=== PATIENT | male | born 1990 | race Two or more races ===

== ENCOUNTER 2018-03-28 17:54 | Emergency (ER) | payer SELFPAY ==
--- NOTE | 2018-03-28 18:44 | ED PDOC ---
HPI: Abdomen <BishopkayleighCarlos J - Last Filed: 03/28/18 18:42> Chief Complaint (Provider): crampy abdominal pain History Per: Patient History/Exam Limitations: no limitations <Radha Pedroza - Last Filed: 03/30/18 10:54> Time Seen by Provider: 03/28/18 18:36 Chief Complaint (Nursing): Abdominal Pain Supervising Attending Note - Supervising Attending Note The Documented history was done by the: Attending Physician The documented physical exam was done by the: Attending Physician The documented procedures were done by the: Attending Physician - Attestation: I have personally seen and examined this patient.: Yes I have fully participated in the care of the patient.: Yes I have reviewed all pertinent clinical information: Yes - Notes: Notes:: Pt was intially evaluated by the PA then was fully seen and evaluated by myself, the MD. 27 yo M with no diagnosed previous medical history presents to the emergency department if complaint of severe, stabbing, crampy abdominal pain. Pt states for the last few months he has frequent nausea and vomiting that typically self resolves. Today, he had severe abdominal pain and after a forced BM, he had a large hard stool followed by explosive diarrhea. Pt states he has continued to feel weak with mild abdominal pain. Pt does not associate abdominal symptoms with any type of food or behavior. Pt has never had a medical workup for this pain. PMD: can't remember name but in another city Physical Exam: Well appearing by tired. NO acute distress NCAT, EOMI, ALLI, MMM RRR, S1/S2 , no murmurs LCTA BL, no wheeze, no crackles. Abdomen soft, non-tender, no palpable mass FROM of all extremities Decreased skin turgor. No rash AAOx3, calm, cooperative. Gait intact A/P: Pt with chronic symptoms consistent with gastroenteritis vs IBS Labs unremarkable. Pain improved with GI coctail and IV fluids. Pt given referral for talk show host and advised to keep a log of symptoms and do get colonoscopy/endoscopy. Pt encouraged to increase PO hydration and rest while symptoms last. <Radha Pedroza - Last Filed: 03/30/18 10:54> Past Medical History Vital Signs: Last Vital Signs Temp 98.2 F 03/28/18 18:27 Pulse 75 03/28/18 18:27 Resp 16 03/28/18 18:27 BP 134/88 03/28/18 18:27 Pulse Ox 98 03/28/18 18:27 <Carlos Bain - Last Filed: 03/28/18 18:42> Vital Signs: Last Vital Signs Temp 98.2 F 03/28/18 18:27 Pulse 75 03/28/18 18:27 Resp 16 03/28/18 18:27 BP 134/88 03/28/18 18:27 Pulse Ox 98 03/28/18 18:44 - Family History Family History: States: No Known Family Hx <Radha Pedroza - Last Filed: 03/30/18 10:54> - Home Medications Home Medications: Ambulatory Orders Medication Instructions Recorded RX: Ranitidine HCl 150 mg PO DAILY #30 tablet 03/28/18 - Allergies Allergies/Adverse Reactions: Allergies Allergy/AdvReac Type Severity Reaction Status Date / Time No Known Allergies Allergy Verified 03/28/18 18:27 - ECG O2 Sat by Pulse Oximetry: 98 <Carlos Bain - Last Filed: 03/28/18 18:42> - Laboratory Results Result Diagrams: 03/28/18 19:55 03/28/18 19:55 <Radha Pedroza - Last Filed: 03/30/18 10:54> Medical Decision Making Medical Decision Making: Pt complains of abdominal pain for two years with vomiting and diarrhea today. During history indicated that I "cut him off" when discussing his "dizziness from time to time" and that he would much prefer to see a physician. I informed him that no diagnostic tests or evaluation would be performed until he was seen and he acknowledged <Carlos Bain - Last Filed: 03/28/18 18:42> Disposition <Carlos Bain - Last Filed: 03/28/18 18:42> - Disposition Disposition: Routine/Home Disposition Time: 20:00 <Radha Pedroza - Last Filed: 03/30/18 10:54> - Clinical Impression Clinical Impression: Abdominal discomfort - Disposition Referrals: Stephen Goncalves MD, PhD [Staff Provider] - Condition: IMPROVED Additional Instructions: Follow up with talk show host. Take medication daily for nausea and abdominal discomfort. Return to the emergency department if symptoms worsen. Prescriptions: RX: Ranitidine HCl 150 mg PO DAILY #30 tablet Instructions: Viral Gastroenteritis, Nausea and Vomiting, Adult (DC) Forms: [employer] (Slovenian) Print Language: AMERICAN
[2018-03-28] MEDS ORDERED: Sodium Chloride 0.9% 1,000 ML IV STA (19:31)
[2018-03-28 20:01] LABS: BASO % 0.4 % (0.0-2.0); EOS # 0.1 K/uL (0.0-0.7); EOS % 1.2 % (0.0-4.0); HEMOGLOBIN 13.8 g/dL (12.0-18.0); MEAN CELL VOLUME 86.4 fl (80.0-94.0); MEAN CORPUSCULAR HEMOGLOBIN 28.3 pg (27.0-31.0); MEAN CORPUSCULAR HGB CONC 32.7 g/dL (33.0-37.0); MEAN PLATELET VOLUME 8.1 fl (7.2-11.7); MONO # 0.5 K/uL (0.0-0.8); NEUT # 6.9 K/uL (1.8-7.0); NEUT % 80.4 % (50.0-75.0); NRBC % 0.6 % (0.0-0.0); RBC 4.88 Mil/uL (4.40-5.90); RED CELL DISTRIBUTION WIDTH 13.8 % (11.5-14.5); WHITE BLOOD COUNT 8.6 K/uL (4.8-10.8)
[2018-03-28 20:07] LABS: ALB/GLOB RATIO 1.3 (1.0-2.1); ALBUMIN 4.7 g/dL (3.5-5.0); ALT/SGPT 60 U/L (21-72); AST/SGOT 30 U/L (17-59); BLOOD UREA NITROGEN 11 mg/dl (9-20); CALCIUM 9.8 mg/dL (8.4-10.2); GFR NON-AFRICAN AMERICAN > 60
--- NOTE | 2018-03-28 20:19 | ED PDOC ---
- Laboratory Results Result Diagrams: 03/28/18 19:55 03/28/18 19:55 Lab Results: Total Bilirubin 0.7 mg/dl (0.2-1.3) 03/28/18 19:55 AST 30 U/L (17-59) 03/28/18 19:55 ALT 60 U/L (21-72) 03/28/18 19:55 Alkaline Phosphatase 58 U/L (38-126) 03/28/18 19:55 Total Protein 8.2 G/DL (6.3-8.2) 03/28/18 19:55 Albumin 4.7 g/dL (3.5-5.0) 03/28/18 19:55 Globulin 3.5 gm/dL (2.2-3.9) 03/28/18 19:55 Albumin/Globulin Ratio 1.3 (1.0-2.1) 03/28/18 19:55 - ECG O2 Sat by Pulse Oximetry: 98 Medical Decision Making Medical Decision Making: Time: 1999 --Patient is endorsed to provider by Dr. Pedroza, pending lab results and final disposition. Scribe Attestation: Documented by Rahel Almendarez, acting as a scribe for Olvin Ruiz MD. Provider Scribe Attestation: All medical record entries made by the Scribe were at my direction and personally dictated by me. I have reviewed the chart and agree that the record accurately reflects my personal performance of the history, physical exam, medical decision making, and the department course for this patient. I have also personally directed, reviewed, and agree with the discharge instructions and disposition. Disposition - Disposition Forms: [employer] (Spanish)
[2018-03-28 21:07] VITALS: BP 122/78; PULSE 72; RESP 18; TEMP 98; O2SAT 100
== END 2018-03-28 20:55 | disposition home or self-care (01) ==
LOC: H.ER 17:54
DX: R10.9 Unspecified abdominal pain (principal); R11.2 Nausea with vomiting, unspecified; R19.7 Diarrhea, unspecified
CPT/HCPCS: 80053; 85025; 96374; 96375; 99283; J2765; J7030